=== PATIENT | male | born 1995 | race Two or more races ===

== ENCOUNTER 2017-07-12 19:42 | Emergency (ER) | payer MEDICAID, OTHER ==
[~2017-07-12] VITALS: Ht 165.1 cm; Wt 63.5 kg
[2017-07-12] MEDS ORDERED: NKM (20:09)
[2017-07-12 20:40] VITALS: BP 137/72
[2017-07-12] MEDS ORDERED: Lidocaine 1% Plain 30 ml INJ ONE (21:00)
[2017-07-12 21:15] VITALS: BP 137/72
--- NOTE | 2017-07-12 21:54 | Emergency Room Report ---
History of Present Illness General Chief Complaint: Pain Source: Patient Present Illness HPI 21YOM with right little toe deformity after accidentally kicking foster of friend barefoot while playing soccer inside Pain with flexing toe No pain to foot/ankle, other toes No previous injury Allergies: Coded Allergies: No Known Allergies (Unverified , 07/12/17) Patient History Past Medical History: none Past Surgical History: none Pertinent Family History: none Social History: Denies: smoking, alcohol use, drug use Immunizations: UTD Reviewed Nursing Documentation: PMH: Agreed, PSxH: Agreed Nursing Documentation-PMH Past Medical History: No Stated History Review of Systems All Other Systems: negative except mentioned in HPI Physical Exam Vital Signs Date Time Temp Pulse Resp B/P (MAP) Pulse Ox O2 Delivery O2 Flow Rate FiO2 07/12/17 20:05 98.1 67 16 137/72 99 Room Air Sp02 EP Interpretation: reviewed, normal General Appearance: normal inspection, well appearing, no apparent distress, alert Head: atraumatic ENT: normal ENT inspection, hearing grossly normal, normal voice Neck: normal inspection, full range of motion, supple, no bony tend Respiratory: normal inspection, lungs clear, normal breath sounds, no respiratory distress, no retraction, no wheezing Cardiovascular #1: regular rate, rhythm, no edema Gastrointestinal: normal inspection, normal bowel sounds, non tender, soft, no guarding, no hernia Genitourinary: no CVA tenderness Musculoskeletal: normal inspection, back normal, normal range of motion, Elver' s Sign negative, other - Right foot: Obvious medially shift/deformed base of 5th toe. Neurologic: normal inspection, alert, responsive, speech normal Psychiatric: normal inspection, judgement/insight normal, mood/affect normal Skin: normal inspection, normal color, no rash Procedures Joint Reduction Joint Reduction : Consent: Verbal Joint Reduction Site: other - Right little toe Procedural Sedation: No Reduction Attempts: One Pre-Procedure NV Exam: Yes Post-Procedure NV Exam: Yes Post Joint Reduction Film: joint reduced Patient Tolerated: Well Complications: None Progress Patient positioned sitting with foot on chair After local anasthesia lidocaine to base bilateral of little toe, outward pulling force applied medially and then laterally and audible and physical click /relocation of toe Patient tolerated procedure well Medical Decision Making Diagnostic Impression: Primary Impression: Dislocation of toe of right foot Qualified Codes: S93.104A - Unspecified dislocation of right toe(s), initial encounter ER Course S/p reduction of dislocation No obvious fx seen on xray Splint applied with estevan tape to 4th toe Advised no sports until cleared by PMD DC home Other X-Ray Diagnostic Results Other X-Ray Diagnostic Results #1: X-Ray ordered: Right foot # of Views/Limited Vs Complete: 3 View Indication: Pain EP Interpretation: Yes Interpretation: no soft tissue swelling, no fractures, other - Dislocation right little toe Electronically Signed by: Dr Rafael Whitney MD Other X-Ray Diagnostic Results #2: # of Views/Limited Vs Complete: 2 View Indication: Pain EP Interpretation: Yes Interpretation: no dislocation, no soft tissue swelling, no fractures Impression: Other - S/p reduction Electronically Signed by: Dr Rafael Whitney MD Last Vital Signs Date Time Temp Pulse Resp B/P (MAP) Pulse Ox O2 Delivery O2 Flow Rate FiO2 07/12/17 20:05 98.1 67 16 137/72 99 Room Air Status: improved Disposition: HOME, SELF-CARE Condition: Improved Additional Instructions: - Keep splint on and clean/dry until cleared by primary doctor or orthopedist - No SPORTS until cleared by doctor RAFAEL WHITNEY M.D. Jul 12, 2017 21:54
--- NOTE | 2017-07-13 11:25 | Diagnostic Imaging Report ---
Indication: PAIN Technique: 3 views right foot Comparison: none Findings: There is superior dislocation of the fifth metatarsal phalangeal joint. No underlying fracture demonstrated. No other evidence of acute fracture or dislocation. Joint spaces are preserved. Impression: Positive for fifth metatarsal phalangeal joint dislocation This was apparently recognized by the ED physician, as a subsequent postreduction image is available
--- NOTE | 2017-07-13 11:36 | Diagnostic Imaging Report ---
Indication: PAIN, status post reduction Technique: 3 views right foot Comparison: One hour earlier Findings: Interim reduction of previously demonstrated dislocated fifth metatarsophalangeal joint. No underlying bony fracture demonstrated. Other findings are unchanged Impression: Successful reduction of previously demonstrated right fifth metatarsophalangeal joint dislocation
== END 2017-07-12 21:15 | disposition home or self-care (01) ==
LOC: EMR 20:30
DX: S93.124A Dislocation of metatarsophalangeal joint of right lesser toe(s), initial encounter (principal); W51.XXXA Accidental striking against or bumped into by another person, initial encounter; Y93.66 Activity, soccer; Y92.89 Other specified places as the place of occurrence of the external cause
CPT/HCPCS: 28630; 73620; 73630; 99284; J2001; Z7502